=== PATIENT | male | born 1995 ===

== ENCOUNTER 2018-02-08 07:36 | Emergency (ER) | payer BC ==
[~2018-02-08] VITALS: Ht 185.4 cm; Wt 99.8 kg
[2018-02-08] MEDS ORDERED: MEDROLPACK PO (12:33)
[2018-02-08] MEDS ORDERED: ZYRTEC10 MG PO (12:33)
== END 2018-02-08 13:21 | disposition home or self-care (01) ==
LOC: ER 07:36
DX: B08.8 Other specified viral infections characterized by skin and mucous membrane lesions (principal)